=== PATIENT | female | born 1940 | race Caucasian/White ===

== ENCOUNTER 2016-06-21 10:14 | Outpatient (CLI) | payer MEDICARE | END 2016-06-21 10:15 | disposition home or self-care (01) | DX: Z12.31 Encounter for screening mammogram for malignant neoplasm of breast (principal); Z80.3 Family history of malignant neoplasm of breast ==

== ENCOUNTER 2017-05-12 15:00 | Outpatient (CLI) | payer MEDICARE ==
--- NOTE | 2017-05-13 11:01 | Ultrasound Report ---
EXAM: THYROID ULTRASOUND EXAM DATE: 05/12/2017 03:57 PM. CLINICAL HISTORY: NODULE, NONTOXIC MULTINODULAR GOITER. COMPARISON: None. TECHNIQUE: Real time sonographic imaging of the thyroid was performed by the resource analyst. Multiple re presentative static images were saved for review. FINDINGS: THYROID GLAND: Right Lobe: 4.4 x 2.4 x 2.3 cm, volume 13 cc. Normal background echotexture. Right Lobe Nodules: 0.5 x 0.3 x 0.7 cm upper pole cyst. Heterogeneous solid right lower thyroid nodule with vascularity measuring 2.2 x 1.6 x 1.7 cm. Left Lobe: 4.2 x 1.7 x 1.3 cm, volume 4.9 cc. Normal background echotexture. Left Lobe Nodules: Heterogeneous solid left mid thyroid nodule measures 0.9 x 0.7 x 0.7 cm. Isthmus: 0.2 cm AP. Isthmic Nodules: None. LYMPH NODES: No adenopathy demonstrated in the central or lateral compartment. OTHER: None. IMPRESSION: 1. A 2.2 cm solid heterogeneous right lower thyroid nodule. Recommend ultrasound guided FNA. 2. Small 0.9 cm heterogeneous left mid thyroid nodule. Management recommendations are based on 2015 [place] [employer] Management Guidelines for A dult Patients with Thyroid Nodules and Differentiated Thyroid Cancer. [facility] Referring Provider Line: [phone] SITE ID: [id number]
== END 2017-05-12 15:01 | disposition home or self-care (01) ==
LOC: DI 15:00
PROVIDERS: ATTEND Internal Medicine
DX: E04.2 Nontoxic multinodular goiter (principal)
CPT/HCPCS: 76536

== ENCOUNTER 2017-05-27 11:42 | Outpatient (CLI) | payer MEDICARE ==
[2017-05-27] MEDS ORDERED: BUFFERED LIDOCAINE 10 ML SYRINGE IU ONE (14:48)
--- NOTE | 2017-05-29 12:12 | Ultrasound Report ---
DATE OF SERVICE: 05/27/2017 ULTRASOUND-GUIDED FINE NEEDLE ASPIRATION RIGHT THYROID NODULE: 05/27/2017 CLINICAL INDICATION: A 2.2 cm nodule lower pole right lobe. PROCEDURE: Informed consent was obtained. Using standard aseptic technique, the patient's right nec k was prepped and draped in the usual sterile fashion. The skin and soft tissues were anesthetized with li docaine. Under ultrasound guidance, four 22-gauge fine needle aspirations were performed. Needle washings wer e submitted to Pathology. The patient tolerated the procedure well. No immediate complications. IMPRESSION: Successful ultrasound-guided fine needle aspiration of right thyroid nodule. Await path ology report. TD: 05/27/2017 20:36
== END 2017-05-27 11:43 | disposition home or self-care (01) ==
LOC: DI 11:42
PROVIDERS: ATTEND Internal Medicine
DX: E04.1 Nontoxic single thyroid nodule (principal)
CPT/HCPCS: 10022; 76942

== ENCOUNTER 2017-06-23 12:27 | Outpatient (CLI) | payer MEDICARE ==
--- NOTE | 2017-06-24 20:50 | Mammography Report ---
DATE OF SERVICE: 06/23/2017 DIGITAL SCREENING MAMMOGRAM: 06/23/2017 CLINICAL INDICATION: A 77-year-old with family history of breast cancer, history of benign biopsies for screening. COMPARISON: 06/2016, 06/2015, 06/2014, 01/2013, 01/2012, 10/2010 TECHNIQUE: Routine CC and MLO projections were obtained of the breasts. The breasts demonstrate heterogeneously dense fibroglandular parenchyma bilaterally. Post-biopsy changes are stable. Punctate, typically benign calcifications are present. No suspicious masses, clustered microcalcifications, or regions of architectural distortion are identified. IMPRESSION: Benign findings. RECOMMENDATIONS: Routine annual screening unless otherwise clinically indicated. BIRADS category 2 benign findings. STANDARD QUALIFYING STATEMENTS 1. This examination was reviewed with the aid of Computed-Aided Detection (CAD). 2. A negative or benign imaging report should not delay biopsy if clinically suspicious findings are present. Consider surgical consultation if warranted. More than 5% of cancers are not identified by imaging. 3. Dense breasts may obscure an underlying neoplasm. TD: 06/24/2017 21:48
== END 2017-06-23 12:28 | disposition home or self-care (01) ==
LOC: DI 12:27
PROVIDERS: ATTEND Internal Medicine
DX: Z12.31 Encounter for screening mammogram for malignant neoplasm of breast (principal); Z80.3 Family history of malignant neoplasm of breast
CPT/HCPCS: 77067

== ENCOUNTER 2018-07-21 17:22 | Outpatient (CLI) | payer MEDICARE | END 2018-07-21 17:23 | disposition critical access hospital (66) | LOC: EMS 17:22 | PROVIDERS: ATTEND Surgery | DX: M79.602 Pain in left arm (principal); W01.0XXA Fall on same level from slipping, tripping and stumbling without subsequent striking against object, initial encounter; Y93.02 Activity, running; Y92.008 Other place in unspecified non-institutional (private) residence as the place of occurrence of the external cause | CPT/HCPCS: A0425; A0429 ==

== ENCOUNTER 2018-07-21 17:40 | Emergency (ER) | payer MEDICARE ==
[2018-07-21] MEDS ORDERED: MORPHINE 2 MG/ML CARPUJECT IVP STA (18:08)
[2018-07-21] MEDS ORDERED: ONDANSETRON 4 MG/2 ML VIAL IVP STA ×2 (18:08→20:33)
--- NOTE | 2018-07-21 18:10 | ED Physician Documentation ---
PD HPI UPPER EXT INJURY - Stated complaint Stated Complaint: GLF - Chief complaint Chief Complaint: Ext Problem - History obtained from History obtained from: Patient, EMS - History of Present Illness Location: Other (She had a trip and fall on a carpet edge at home landing forward and on her left side. She has a laceration above her eyes and a scrape on the face. She is up-to-date on tetanus. The thing that hurts the worst is poorly localizable left arm pain. She has been ambulatory since the accident. She is not anticoagulated, there was no loss of consciousness.) Review of Systems Constitutional: reports: Reviewed and negative Cardiac: reports: Reviewed and negative Respiratory: reports: Reviewed and negative PD PAST MEDICAL HISTORY - Past Medical History Cardiovascular: Other Psych: Anxiety Musculoskeletal: Osteoarthritis - Past Surgical History Past Surgical History: No HEENT: Cataracts - Present Medications Home Medications: Ambulatory Orders Medication Instructions Recorded Confirmed Hydrocodone/Acetaminophen 1 - 2 each PO Q6H PRN #20 tablet 07/21/18 [Hydrocodon-Acetaminophen 5-325] Multivitamin [Multiple Vitamins] 07/21/18 Ondansetron Odt [Zofran] 4 mg TL Q6H PRN #10 tablet 07/21/18 - Allergies Allergies/Adverse Reactions: Allergies Allergy/AdvReac Type Severity Reaction Status Date / Time codeine AdvReac Nausea Verified 07/21/18 17:45 - Social History Does the pt smoke?: No Smoking Status: Never smoker Does the pt drink ETOH?: No Does the pt have substance abuse?: No PD ED PE NORMAL - Vitals Vital signs reviewed: Yes - General General: Alert and oriented X 3, No acute distress - HEENT HEENT: PERRL, EOMI, Other (There is some periorbital edema on the left with early bruising, there is a laceration above the left eyebrow that shallow and abrasion lateral to that. There is no facial bony tenderness.) - Neck Neck: Supple, no meningeal sign, No bony TTP - Cardiac Cardiac: RRR, No murmur - Respiratory Respiratory: No respiratory distress, Clear bilaterally - Abdomen Abdomen: Non tender - Back Back: No spinal TTP - Extremities Extremities: Other (She is very tender to the left arm specifically the upper humerus and unable to range at all. There is mild tenderness over the dorsal wrist and forearm but much less so than the humerus. She is able to range the wrist but not the arm. She has normal neurovascular status in the left hand there is a small bruise over the left knee, but she is been ambulatory and it is not tender.) - Neuro Neuro: Alert and oriented X 3, Normal speech - Psych Psych: Normal mood, Normal affect Results - Vitals Vitals: Vital Signs - 24 hr 07/21/18 07/21/18 07/21/18 17:43 17:45 18:55 Temperature 35.9 C L Heart Rate 65 85 Respiratory 16 16 Rate Blood Pressure 169/94 H 169/117 H 146/84 H O2 Saturation 99 99 07/21/18 07/21/18 07/21/18 19:24 20:36 20:47 Temperature 36.6 C Heart Rate 86 75 84 Respiratory 16 18 17 Rate Blood Pressure 155/89 H 100/57 L 106/69 O2 Saturation 97 95 97 07/21/18 07/21/18 07/21/18 21:36 21:47 21:58 Temperature 36.4 C L Heart Rate 86 90 86 Respiratory 18 20 14 Rate Blood Pressure 122/79 142/81 H 148/89 H O2 Saturation 99 96 88 L 07/21/18 07/21/18 07/22/18 22:51 23:06 00:14 Temperature 36.0 C L Heart Rate 85 89 91 Respiratory 15 22 24 Rate Blood Pressure 158/90 H 156/96 H 138/87 H O2 Saturation 100 100 99 07/22/18 00:47 Temperature 36.5 C Heart Rate 90 Respiratory 19 Rate Blood Pressure 150/90 H O2 Saturation 97 Oxygen O2 Source Room air - Rads (name of study) CAT scan of the head and C-spine Radiology: EMP read contemporaneously (Stable atrophy and degenerative changes without acute disease) X-rays of the left forearm and left humerus Radiology: EMP read contemporaneously (Complicated humeral neck fracture and distal radius fracture.) Procedures - Laceration (location) L forehead Length in cm: 1.5 Wound type: Linear, Superficial Wound Preparation: Irrigated copiously NS Skin layer closure: Dermabond Other: Tetanus UTD Complexity: Simple - Splint (location) LLarm Splint applied by: Tech Type of splint: Fiberglass, Short arm, Volar cock up Other: Patient tolerated well, No complications, Sling provided PD MEDICAL DECISION MAKING - ED course ED course: 78-year-old woman with ground-level fall hitting her head and hurting her arm. She has proximal humerus and wrist fracture on the left. There was a laceration and abrasion on the forehead, the laceration was closed with Dermabond and she was given wound care instructions. Referred to orthopedics as an outpatient in a splint and a sling. Departure - Departure Disposition: 01 Home, Self Care Clinical Impression: Head injury, Facial laceration, Facial abrasion, Humeral surgical neck fracture, Fracture of left distal radius Condition: Good Record reviewed to determine appropriate education?: Yes Instructions: Humerus Fx, ED Fx Colles Wrist No Redu Requ, ED Laceration Facial Skin Glue Follow-Up: [facility] [Provider Group] - Within 1 week Prescriptions: Hydrocodone/Acetaminophen [Hydrocodon-Acetaminophen 5-325] 1 - 2 each PO Q6H PRN #20 tablet PRN Reason: pain Ondansetron Odt [Zofran] 4 mg TL Q6H PRN #10 tablet PRN Reason: Nausea / Vomiting Comments: Keep the sling on and dry, do not remove it. Return for new or worsening symptoms. Call the orthopedics office tomorrow for an appointment. Keep the Laceration on the face dry in general, you can wash it with soap and water briefly. Do not pick at it. Apply Vaseline to the abrasion lower to that, but try to avoid it on the glue. Do not drink or drive while taking narcotic pain medication. Note that many narcotic pain relievers also contain Tylenol/acetaminophen. Please ensure that your total dose of acetaminophen from all sources does not exceed 3 g (3000 mg) per day. You may get constipated while on this medication. Take a stool softener such as Colace twice a day while you are on it. Also add an knjj-ris-laxluqz laxative such as senna or MiraLAX on any day that you do not have a bowel movement. If you received a narcotic pain medication or sedative while in the emergency department, do not drive for the next 24 hours. Your blood pressure was elevated today on check into the emergency department. This does not mean that you have hypertension, it is a common phenomenon to come to the emergency department and have elevated blood pressure. I recommend that you see your primary care physician within the week to have it rechecked when you are feeling better.
--- NOTE | 2018-07-21 19:21 | CT Report ---
Reason: fall, head/arm inj Procedure Date: 07/21/2018 Accession Number: [id number] / [id number] Procedure: CT - HEAD WO CPT Code: FULL RESULT: EXAM: CT HEAD EXAM DATE: 07/21/2018 06:49 PM. CLINICAL HISTORY: Fall. Head/arm inj. COMPARISON: HEAD W/O 11/09/2015 1:50 PM. TECHNIQUE: Multiaxial CT images were obtained from the foramen magnum to the vertex. Reformats: Sagittal and coronal. IV contrast: None. In accordance with CT protocol optimization, one or more of the following dose reduction techniques were utilized for this exam: automated exposure control, adjustment of mA and/or KV based on patient size, or use of iterative reconstructive technique. FINDINGS: Parenchyma: No intraparenchymal hemorrhage. No evidence of mass, midline shift, or CT findings of acute infarction. Waters-white differentiation is distinct. Stable chronic microangiopathic white matter changes are evident. Extraaxial Spaces: Normal for age. No subdural or epidural collections identified. Ventricles: The ventricles and cortical sulci are prominent, consistent with age-related tissue loss. Sinuses and orbits: Imaged paranasal sinuses, orbits, and mastoids show no significant abnormality. Bones: No evidence of fracture or calvarial defect. Other: Superficial left periorbital fat stranding noted. IMPRESSION: Stable age-related cortical atrophic changes without evidence of acute intracranial abnormality. [facility]
--- NOTE | 2018-07-21 19:23 | XRAY Report ---
Reason: fall, head/arm inj Procedure Date: 07/21/2018 Accession Number: [id number] / [id number] Procedure: XR - Humerus LT CPT Code: FULL RESULT: EXAM: LEFT HUMERUS RADIOGRAPHY EXAM DATE: 07/21/2018 07:17 PM. CLINICAL HISTORY: Fall. Head/arm inj. COMPARISON: None. TECHNIQUE: 2 views. FINDINGS: Bones: Transverse humeral neck fracture displaced by about 5 mm with mild comminution. Nondisplaced greater tuberosity fracture. Joints: No dislocation. Advanced glenohumeral degenerative changes. Unremarkable elbow joint. IMPRESSION: 1. Mildly displaced transverse humeral neck fracture with nondisplaced greater tuberosity fracture. 2. Advanced osteoarthritis of the glenohumeral joint. [facility]
--- NOTE | 2018-07-21 19:30 | XRAY Report ---
Reason: fall, head/arm inj Procedure Date: 07/21/2018 Accession Number: [id number] / [id number] Procedure: XR - Forearm LT CPT Code: FULL RESULT: EXAM: LEFT FOREARM RADIOGRAPHY EXAM DATE: 07/21/2018 07:17 PM. CLINICAL HISTORY: Fall. Head/arm inj. COMPARISON: None. TECHNIQUE: 2 views. FINDINGS: Bones: Radial metaphyseal fracture with dorsal impaction. No other fractures identified. Joints: Normal. No effusions or subluxations in the visualized wrist or elbow joints. Soft Tissues: Unremarkable. IMPRESSION: Nondisplaced dorsally impacted radial metaphyseal fracture. [facility]
--- NOTE | 2018-07-21 19:35 | CT Report ---
Reason: fall, head/arm inj Procedure Date: 07/21/2018 Accession Number: [id number] / [id number] Procedure: CT - CERVICAL SPINE WO CPT Code: FULL RESULT: EXAM: CT CERVICAL SPINE WITHOUT CONTRAST DATE: 07/21/2018 06:49 PM. HISTORY: Fall. Head/arm inj. COMPARISONS: HEAD W/O 11/09/2015 1:50 PM. TECHNIQUE: Thin-section axial images were acquired of the cervical spine without contrast. Post-processing: Coronal and sagittal reformats. Other: None. In accordance with CT protocol optimization, one or more of the following dose reduction techniques were utilized for this exam: automated exposure control, adjustment of mA and/or KV based on patient size, or use of iterative reconstructive technique. FINDINGS: Alignment: Mild dextroscoliosis. No spondylolisthesis Bones: No fracture or bone lesion. Interspace Levels/Facets: C1-C2: Unremarkable. C2-C3: Partial fusion, a developmental variant. C3-C4: Moderate disk space narrowing. C4-C5: Advanced disk space narrowing with spurring. C5-C6: Advanced disk space narrowing with spurring. Left foraminal narrowing. C6-C7: Moderate disk space narrowing with spurring. Left foraminal narrowing. C7-T1: Unremarkable. Musculature: Normal. No fatty atrophy. Other: 2.3 cm right thyroid nodule noted. The lung apices are clear. IMPRESSION: 1. No acute cervical spine abnormalities. 2. Multilevel degenerative disk disease, worst at C4-C5 and C5-C6. 3. Right thyroid nodule. Consider ultrasound evaluation. [facility]
[2018-07-21] MEDS ORDERED: HYDROmorphone 1 MG/ML CARPUJECT IVP STA (20:07)
[2018-07-21] MEDS ORDERED: HYDROcod/ACET 5/325 Prepack 4 PO STA (20:07)
[2018-07-21] MEDS ORDERED: ONDANSETRON 4 MG/2 ML VIAL ONE (20:38)
[2018-07-21] MEDS ORDERED: LIDOCAINE 1% 2 ML VIAL ONE (20:51)
[2018-07-22 00:48] VITALS: BP 150/90
== END 2018-07-22 00:50 | disposition home or self-care (01) ==
LOC: EDUNIT# → ED 17:40
DX: S42.212A Unspecified displaced fracture of surgical neck of left humerus, initial encounter for closed fracture (principal); S42.255A Nondisplaced fracture of greater tuberosity of left humerus, initial encounter for closed fracture; S52.592A Other fractures of lower end of left radius, initial encounter for closed fracture; S01.81XA Laceration without foreign body of other part of head, initial encounter; S80.02XA Contusion of left knee, initial encounter; S09.90XA Unspecified injury of head, initial encounter; W01.10XA Fall on same level from slipping, tripping and stumbling with subsequent striking against unspecified object, initial encounter; Y93.02 Activity, running; Y92.009 Unspecified place in unspecified non-institutional (private) residence as the place of occurrence of the external cause; R03.0 Elevated blood-pressure reading, without diagnosis of hypertension
CPT/HCPCS: 12011; 29125; 70450; 72125; 73060; 73090; 96374; 96375; 96376; 99283; 99285; J1170; 12001

== ENCOUNTER 2018-07-23 16:18 | Outpatient (CLI) | payer MEDICARE ==
--- NOTE | 2018-07-24 11:34 | XRAY Report ---
Reason: R MIDDLE FINGER DEFORMITY Procedure Date: 07/23/2018 Accession Number: [id number] / [id number] Procedure: XR - Finger(s) RT CPT Code: FULL RESULT: EXAM: RIGHT THIRD DIGIT RADIOGRAPHY EXAM DATE: 07/23/2018 04:36 PM. CLINICAL HISTORY: R MIDDLE FINGER DEFORMITY. COMPARISON: XR WRIST COMPLETE 3 VIEWS 08/07/2009 3:32 PM. TECHNIQUE: 3 views. FINDINGS: Bones: Likely chronic posttraumatic changes are seen along the distal aspect of the middle phalanx. Joints: Posttraumatic changes including a well-corticated rounded fragment dorsally to the distal interphalangeal joint. [place]-neck deformity of the proximal interphalangeal joint, ligamentous injury. Soft Tissues: Normal. No soft tissue swelling. IMPRESSION: Likely chronic posttraumatic findings. If there is acute pain in the area, orthopedic consultation could be considered. [facility]
== END 2018-07-23 16:19 | disposition home or self-care (01) ==
LOC: DI 16:18
PROVIDERS: ATTEND Internal Medicine
DX: M20.031 Swan-neck deformity of right finger(s) (principal)
CPT/HCPCS: 73140

== ENCOUNTER 2018-09-22 13:19 | Outpatient (CLI) | payer MEDICARE ==
--- NOTE | 2018-09-23 11:45 | DEXA Report ---
Reason: FRACTURE OF HUMERUS RADIUS,MULTIPLE THYROID NODU Procedure Date: 09/22/2018 Accession Number: [id number] / [id number] Procedure: DEX - Dexa Spine and/or Hip CPT Code: FULL RESULT: EXAM: Dexa Spine and/or Hip DATE: 09/22/2018 2:18 PM CLINICAL HISTORY: FRACTURE OF HUMERUS RADIUS,MULTIPLE THYROID NODU TECHNIQUE: Dual energy x-ray absorptiometry (DXA) was performed on a [employer] System. Regions measured are the AP Spine, femoral neck, and if needed forearm. COMPARISON: None. In accordance with the International Society for Clinical Densitometry (ISCD) guidelines, data from previous exams may be reanalyzed using current recommendations and techniques. This is done to allow a more accurate basis for comparison with the current study. FINDINGS: The data for the lumbar spine is as follows: BMD (g/cm/cm) T-SCORE Z-SCORE REGION L1 0.853 -2.3 -0.4 L2 0.888 -2.6 -0.7 L3 0.945 -2.1 -0.2 L4 0.990 -1.7 0.2 TOTAL 0.923 -2.1 -0.2 NOTE: All evaluable vertebrae are used for classification The data for the hip is as follows: BMD (g/cm/cm) T-SCORE Z-SCORE REGION Neck 0.713 -2.3 -0.2 TOTAL 0.740 -2.1 -0.1 NOTE: The femoral neck or total proximal femur, whichever is lowest, is used for classification. IMPRESSION: THE WHO CLASSIFICATION BASED ON THE INTERNATIONAL REFERENCE STANDARD IS OSTEOPENIA. THE FRACTURE RISK IS INCREASED. RECOMMENDATION: Patients with diagnosis of osteoporosis or osteopenia should have regular bone mineral density assessment. For those eligible for Medicare, routine testing is allowed once every 2 years. Testing frequency can be increased for patients who have rapidly progressing disease or for those who are receiving medical therapy to restore bone mass. COMMENT: World Health Organization (WHO) definitions for osteoporosis and osteopenia: NORMAL BMD: T-score at -1.0 or higher, fracture risk is low OSTEOPENIA BMD: T-score between -1.0 and -2.5, fracture risk is increased. OSTEOPOROSIS BMD: T-score at -2.5 or lower, fracture risk is high. National Osteoporosis Foundation recommends: 1. Obtain adequate dietary calcium (at least 1200 mg per day) and vitamin D (400-800 international units per day). 2. Participate, as appropriate, in regular weightbearing and muscle-strengthening exercise. 3. Avoid tobacco use and reduce alcohol and caffeine intake. 4. For more detailed information see the website at www.NOF.org.
== END 2018-09-22 13:20 | disposition home or self-care (01) ==
LOC: DI 13:19
PROVIDERS: ATTEND Internal Medicine
DX: Z13.820 Encounter for screening for osteoporosis (principal); M85.89 Other specified disorders of bone density and structure, multiple sites
CPT/HCPCS: 77080

== ENCOUNTER 2018-09-25 15:14 | Outpatient (CLI) | payer MEDICARE ==
--- NOTE | 2018-09-26 21:52 | Ultrasound Report ---
Reason: FRACTURE OF HUMERUS RADIUS,MULTIPLE THYROID NODU Procedure Date: 09/25/2018 Accession Number: [id number] / [id number] Procedure: US - Head or Neck Soft Tissue CPT Code: FULL RESULT: EXAM: THYROID ULTRASOUND EXAM DATE: 09/25/2018 03:45 PM. CLINICAL HISTORY: Follow-up for thyroid nodules. Per patient information, benign FNA performed on 05/27/2017. COMPARISON: HEAD OR NECK SOFT TISSUE 05/12/2017 3:07 PM. TECHNIQUE: Real time sonographic imaging of the thyroid was performed by the retail and restaurant. Multiple new accounts representative static images were saved for review. FINDINGS: THYROID GLAND: Right Lobe: 4.8 x 2.8 x 2.4 cm, volume 16.5 cc. Normal background echotexture. Right Lobe Nodules: 1. Mostly solid nodule in the lateral right upper pole measuring up to 6 mm. 2. Complex nodule in the central slightly medial right mid lobe measuring up to 4 mm. 3. A cyst is seen measuring up to 7 mm in the lateral mid lobe. 4. Heterogeneous solid nodule measuring up to 26 mm. Left Lobe: 4.3 x 1.7 x 1.2 cm, volume 4.3 cc. Normal background echotexture. Left Lobe Nodules: 1. Dominant complex nodule measuring up to 4 mm in the medial upper pole. 2. In the midportion by the Isthmus, complex nodule measuring up to 4 mm. 3. In the lateral midportion, a complex nodule measuring up to 3 mm. Isthmus: 0.1 cm AP. Isthmic Nodules: None. Mildly increased vascularity noted. LYMPH NODES: No adenopathy demonstrated in the central or lateral compartment. OTHER: None. IMPRESSION: Bilateral thyroid nodules described above, largest measuring up to 26 mm in the right lower pole. Management recommendations are based on 2015 [place] [employer] Management Guidelines for Adult Patients with Thyroid Nodules and Differentiated Thyroid Cancer. [facility]
== END 2018-09-25 15:15 | disposition home or self-care (01) ==
LOC: DI 15:14
PROVIDERS: ATTEND Internal Medicine
DX: E04.2 Nontoxic multinodular goiter (principal)
CPT/HCPCS: 76536

== ENCOUNTER 2018-10-14 13:32 | Outpatient (CLI) | payer MEDICARE ==
--- NOTE | 2018-10-14 16:56 | Mammography Report ---
Reason: SCREENING MAMMO Procedure Date: 10/14/2018 Accession Number: [id number] / [id number] Procedure: SUKH - Screening Mammo w/Roby CPT Code: FULL RESULT: EXAM: Screening Mammo w/Roby DATE: 10/14/2018 2:53 PM CLINICAL HISTORY: Routine screening. No reported personal history of breast cancer. Family history breast cancer in mother at age 80 and sister age 70. TECHNIQUE: (B) - Bilateral CC and MLO views were obtained. COMPARISON: 06/23/2017 through 06/09/2014. PARENCHYMAL PATTERN: (D) - The breasts demonstrate heterogeneously dense fibroglandular parenchyma bilaterally. FINDINGS: Bilateral breasts: Exam is technically limited due to patient mobility restrictions related to severe arthritis in both shoulders and fracture of the left humerus. Best possible imaging was obtained. There are no suspicious masses, calcifications, or areas of distortion. IMPRESSION: Negative examination. BI-RADS category 1. RECOMMENDATION: (ANNUAL) - Recommend routine annual screening mammography. BI-RADS CATEGORY: (1) - Negative. STANDARD QUALIFYING STATEMENTS: 1. This examination was not reviewed with the aid of Computer-Aided Detection (CAD). 2. A negative or benign imaging report should not preclude biopsy if clinically suspicious findings are present. 3. Dense breasts may obscure an underlying neoplasm. 4. This examination was reviewed with the aid of 3D breast imaging (tomosynthesis).
== END 2018-10-14 13:33 | disposition home or self-care (01) ==
LOC: DI 13:32
PROVIDERS: ATTEND Internal Medicine
DX: Z12.31 Encounter for screening mammogram for malignant neoplasm of breast (principal); Z80.3 Family history of malignant neoplasm of breast
CPT/HCPCS: 77063; 77067

== ENCOUNTER 2020-05-22 10:26 | Outpatient (CLI) | payer MEDICARE | END 2020-05-22 10:27 | disposition critical access hospital (66) | LOC: EMS 10:26 | PROVIDERS: ATTEND Surgery | DX: R42 Dizziness and giddiness (principal); R11.0 Nausea | CPT/HCPCS: A0425; A0427 ==

== ENCOUNTER 2020-05-22 10:44 | Emergency (ER) | payer MEDICARE ==
[2020-05-22 11:11] LABS: BASOPHILS % (AUTO) 0.5 %; EOSINOPHILS % (AUTO) 0.5 %; HGB - HEMOGLOBIN 13.5 g/dL (12.0-16.0); LYMPHOCYTES # (AUTO) 0.6 10^3/uL (1.5-3.5); LYMPHOCYTES % (AUTO) 9.3 %; MEAN CORPUSCULAR HEMOGLOBIN 31.4 pg (27.0-31.0); MEAN CORPUSCULAR HGB CONC 32.2 g/dL (32.0-36.0); MEAN CORPUSCULAR VOLUME 97.4 fL (81.0-99.0); MEAN PLATELET VOLUME 9.6 fL (7.9-10.8); MONOCYTES # (AUTO) 0.3 10^3/uL (0.0-1.0); MONOCYTES % (AUTO) 4.9 %; NEUTROPHILS # (AUTO) 5.2 10^3/uL (1.5-6.6); NEUTROPHILS % (AUTO) 84.6 %; PLT - PLATELET COUNT 155 10^3/uL (130-450); RED CELL DISTRIBUTION WIDTH 12.3 % (12.0-15.0); WHITE BLOOD COUNT 6.2 x10^3/uL (4.8-10.8)
[2020-05-22] MEDS ORDERED: DEXAMETHASONE 10 MG/ML VIAL IVP STA (11:14)
[2020-05-22] MEDS ORDERED: SODIUM CHLORIDE 0.9% 1,000 ML IV STA ×2 (11:14→13:50)
[2020-05-22] MEDS ORDERED: MECLIZINE 12.5 MG TABLET PO STA (11:15)
[2020-05-22] MEDS ORDERED: ONDANSETRON 4 MG/2 ML VIAL IVP STA ×2 (11:16→15:16)
--- NOTE | 2020-05-22 11:16 | ED Physician Documentation ---
History of Present Illness - Stated complaint Stated Complaint: DIZZY - Chief complaint Chief Complaint: Neuro - History obtained from History obtained from: Patient - History of Present Illness Timing: Today - Additonal information Additional information: 80-year-old female reports acute dizziness nausea and vomiting upon arriving arising this morning. She feels the room is spinning and if she moves her head at all she feels nauseated. She does have a bit of a headache. She has had vertigo previously never this bad. She has not been sick prior to this she denies any signs or symptoms of illness and today is unable to stand walk or move secondary to severe dizziness with any head movement. Review of Systems Constitutional: denies: Fever Eyes: denies: Decreased vision Ears: denies: Ear pain Nose: denies: Rhinorrhea / runny nose, Congestion Throat: denies: Sore throat Cardiac: denies: Chest pain / pressure, Palpitations Respiratory: denies: Dyspnea, Cough GI: reports: Nausea, Vomiting. denies: Abdominal Pain : denies: Dysuria, Frequency Skin: denies: Rash, Lesions, Abrasion (s) Musculoskeletal: denies: Neck pain, Back pain, Extremity pain Neurologic: reports: Headache, Other (Dizziness). denies: Generalized weakness, Focal weakness, Numbness, Head injury, LOC PD PAST MEDICAL HISTORY - Past Medical History Past Medical History: Yes Cardiovascular: Other Psych: Anxiety Musculoskeletal: Osteoarthritis - Past Surgical History Past Surgical History: No HEENT: Cataracts - Present Medications Home Medications: Ambulatory Orders Medication Instructions Recorded Confirmed Hydrocodone/Acetaminophen 1 - 2 each PO Q6H PRN #20 tablet 07/21/18 [Hydrocodon-Acetaminophen 5-325] Multivitamin [Multiple Vitamins] 07/21/18 Ondansetron Odt [Zofran] 4 mg TL Q6H PRN #10 tablet 07/21/18 Meclizine [Antivert] 25 mg PO Q6H PRN #20 tablet 05/22/20 Ondansetron Odt [Zofran] 4 mg TL Q6H PRN #10 tablet 05/22/20 - Allergies Allergies/Adverse Reactions: Allergies Allergy/AdvReac Type Severity Reaction Status Date / Time codeine AdvReac Nausea Verified 05/22/20 10:54 - Social History Does the pt smoke?: No Smoking Status: Never smoker Does the pt drink ETOH?: No Does the pt have substance abuse?: No - Immunizations Immunizations are current?: Yes PD ED PE NORMAL - Vitals Vital signs reviewed: Yes (Hypertensive) - General General: Alert and oriented X 3, Well developed/nourished, Other (The patient is laying curled in the position with her eyes closed not wanting to move.) - HEENT HEENT: Atraumatic, PERRL, EOMI, Ears normal, Other (There are 5 beats of rapid nystagmus bilaterally.) - Neck Neck: Supple, no meningeal sign, No bony TTP - Cardiac Cardiac: RRR, No murmur - Respiratory Respiratory: No respiratory distress, Clear bilaterally - Abdomen Abdomen: Soft, Non tender - Back Back: No CVA TTP, No spinal TTP - Derm Derm: Normal color, Warm and dry, No rash - Extremities Extremities: No deformity, No edema - Neuro Neuro: Alert and oriented X 3, sample wrapper 2-12 intact, No motor deficit, No sensory deficit, Normal speech Eye Opening: Spontaneous Motor: Obeys Commands Verbal: Oriented GCS Score: 15 - Psych Psych: Normal mood, Normal affect Results - Vitals Vitals: Vital Signs - 24 hr 05/22/20 05/22/20 05/22/20 10:50 13:00 15:00 Temperature 36.5 C 36.7 C Heart Rate 84 88 97 Respiratory 11 L 16 Rate Blood Pressure 155/93 H 166/89 H 148/80 H O2 Saturation 93 93 99 Oxygen O2 Source Room air - Labs Labs: Laboratory Tests 05/22/20 05/22/20 05/22/20 11:05 11:05 13:05 WBC 6.2 RBC 4.30 Hgb 13.5 Hct 41.9 MCV 97.4 MCH 31.4 H MCHC 32.2 RDW 12.3 Plt Count 155 MPV 9.6 Neut # (Auto) 5.2 Lymph # (Auto) 0.6 L [place] # (Auto) 0.3 Eos # (Auto) 0.0 Baso # (Auto) 0.0 Absolute Nucleated RBC 0.00 Nucleated RBC % 0.0 Sodium 139 Potassium 3.9 Chloride 103 Carbon Dioxide 24 Anion Gap 12.0 BUN 16 Creatinine 0.8 Estimated GFR (MDRD) 69 L Glucose 158 H Calcium 8.9 Total Bilirubin 0.7 AST 18 ALT 18 Alkaline Phosphatase 75 Total Protein 6.8 Albumin 3.9 Globulin 2.9 Albumin/Globulin Ratio 1.3 Lipase 20 L Urine Color YELLOW Urine Clarity CLEAR Urine pH 7.0 Ur Specific [place] 1.020 Urine Protein NEGATIVE Urine Glucose (UA) NEGATIVE Urine Ketones NEGATIVE Urine Occult Blood NEGATIVE Urine Nitrite NEGATIVE Urine Bilirubin NEGATIVE Urine Urobilinogen 0.2 (NORMAL) Ur Leukocyte Esterase NEGATIVE Ur Microscopic Review NOT INDICATED Urine Culture Comments NOT INDICATED - Rads (name of study) CT head Radiology: Prelim report reviewed, EMP read indepedently, See rad report PD MEDICAL DECISION MAKING - ED course Complexity details: reviewed old records, reviewed results, re-evaluated patient, considered differential, d/w patient ED course: 80-year-old female with acute vertigo has marked nystagmus on arrival and nausea and vomiting. An IV line is established she is given 10 mg of dexamethasone 25 mg of meclizine and a liter of saline. She has improvement in her dizziness and is able to open her eyes. A modified Giorgi maneuver is done on the patient twice with some improvement in her dizziness and she is able to use the bedpan. She has further improvement with time and feels the maneuver worked well to improve symptoms. Departure - Departure Disposition: 01 Home, Self Care Clinical Impression: Labyrinthitis Qualifiers: Laterality: bilateral Qualified Code(s): H83.03 - Labyrinthitis, bilateral Condition: Stable Instructions: ED Labyrinthitis Follow-Up: Gideon Kat MD [Primary Care Provider] - Prescriptions: Meclizine [Antivert] 25 mg PO Q6H PRN #20 tablet PRN Reason: Dizziness Ondansetron Odt [Zofran] 4 mg TL Q6H PRN #10 tablet PRN Reason: Nausea / Vomiting
[2020-05-22 11:29] LABS: ALBUMIN 3.9 g/dL (3.2-5.5); ALBUMIN/GLOBULIN RATIO 1.3 (1.0-2.2); BILIRUBIN,TOTAL 0.7 mg/dL (0.2-1.0); CALCIUM 8.9 mg/dL (8.5-10.3); CREATININE 0.8 mg/dL (0.4-1.0); TOTAL PROTEIN 6.8 g/dL (6.7-8.2)
[2020-05-22 13:45] LABS: BILIRUBIN,URINE NEGATIVE (NEGATIVE); GLUCOSE, URINE (UA) NEGATIVE (NEGATIVE); KETONES,URINE (UA) NEGATIVE (NEGATIVE); LEUKOCYTE ESTERASE, URINE NEGATIVE (NEGATIVE); NITRITE,URINE NEGATIVE (NEGATIVE); OCCULT BLOOD,URINE NEGATIVE (NEGATIVE); PROTEIN,URINE NEGATIVE (NEGATIVE); UROBILINOGEN,URINE 0.2 (NORMAL) E.U./dL (NORMAL)
[2020-05-22 13:46] LABS: CLARITY,URINE CLEAR (CLEAR)
--- NOTE | 2020-05-22 14:31 | CT Report ---
PROCEDURE: HEAD WO INDICATIONS: headache, vertigo TECHNIQUE: Noncontrast 4.5 mm thick angled axial sections acquired from the foramen magnum to the vertex. For r adiation dose reduction, the following was used: automated exposure control, adjustment of mA and/or kV according to patient size. COMPARISON: CT 07/22/2018 FINDINGS: Image quality: Excellent. The ventricular system and cortical sulci demonstrate atrophy, consistent for patient's stated age. There are areas of hypodensity in the periventricular and subcortical white matter. There is no acut e intra or extra-axial fluid collection. No acute hemorrhage, mass lesion or midline shift. Brainst em is unremarkable. Globes are symmetrical. Sinuses are aerated. Osseous structures are intact. IMPRESSION: 1. No acute intracranial process. 2. Moderate atrophy and chronic microvascular ischemic changes. Reviewed by: Anita Hickey MD on 05/22/2020 2:30 PM PST Approved by: Anita Hickey MD on 05/22/2020 2:30 PM PST Station ID: [id number]
[2020-05-22 17:39] VITALS: BP 161/94
== END 2020-05-22 17:42 | disposition home or self-care (01) ==
LOC: EDUNIT# → ED 10:44
DX: H83.03 Labyrinthitis, bilateral (principal); R11.2 Nausea with vomiting, unspecified
CPT/HCPCS: 36415; 70450; 80053; 81003; 83690; 85025; 96374; 96375; 96376; 99284; A9270; 81001; 87086

== ENCOUNTER 2020-10-02 09:20 | Outpatient (CLI) | payer MEDICARE ==
--- NOTE | 2020-10-03 10:22 | Ultrasound Report ---
PROCEDURE: Head or Neck Soft Tissue INDICATIONS: MULTINODULAR GOITER TECHNIQUE: Real time scanning was performed of the neck region of interest, with image documentation . COMPARISON: 09/25/2018 thyroid ultrasound. FINDINGS: No soft tissue neck abnormality seen bilaterally external to the thyroid. The thyroid itse lf measures 2.5 x 2.8 x 4.4 cm on the right and 1.2 x 1.5 x 4.1 cm on the left. Inferiorly at the right thyroid lobe a previously present nodule has not changed and measures 2.1 x 2 .1 x 2.5 cm. This is wider than tall, solid, generally isoechoic, lobulated, with no echogenic foci a nd yields a TI-RADS 4 categorization with recommendation for fine needle aspiration biopsy given the average size of greater than 1.5 cm. At the right superior thyroid lobe there is a nodule not previously identified measuring 1.2 x 1.2 x 1.0 cm that is wider than tall, predominantly solid, hyperechoic and hypoechoic, lobulated and with n o internal calcifications. This yields a TI-RADS 4 categorization. Given the average dimension of les s than 1.5 cm but larger than 1.0 cm follow-up in one, 2, 3 and 5 years is recommended. A total of 2 previously present stable sub-7 mm nodules are also identified, superiorly on the right and inferiorly on the left, which do not require biopsy and which will be followed in conjunction wit h sequential assessment of the newly identified nodule superiorly on the right. IMPRESSION: The largest thyroid nodule by current standardized recommendations should be biopsied by fine-needle aspiration if this has not yet been performed. There is a new inferior right thyroid nodule not previously present, which requires sequential follow -up by ultrasound in 1, 2, 3 and 5 years from now. There are 2 sub-7 mm thyroid nodules which can be followed during the sequence of assessment of the n ew thyroid nodule mentioned above. Reviewed by: Pedro Valle MD on 10/03/2020 10:20 AM PDT Approved by: Pedro Valle MD on 10/03/2020 10:20 AM PDT Station ID: [id number]
== END 2020-10-02 09:21 | disposition home or self-care (01) ==
LOC: DI 09:20
PROVIDERS: ATTEND Internal Medicine
DX: E04.2 Nontoxic multinodular goiter (principal)

== ENCOUNTER 2020-11-24 09:18 | Outpatient (CLI) | payer MEDICARE ==
--- NOTE | 2020-11-27 13:45 | Mammography Report ---
BILATERAL DIGITAL SCREENING MAMMOGRAM 3D/2D: 11/24/2020 CLINICAL: Routine screening. Comparison is made to exams dated: 10/14/2018 mammogram, 06/23/2017 mammogram, and 06/21/2016 mammogram - [facility]. The tissue of both breasts is heterogeneously dense. This may lower the sensitivity of mammography. There are benign vascular calcifications in both breasts. No significant masses, calcifications, or other findings are seen in either breast. There has been no significant interval change. IMPRESSION: BENIGN There is no mammographic evidence of malignancy. A 1 year screening mammogram is recommended. This exam was interpreted at Station ID: [id number]. NOTE: For mammograms, a report in lay terms will be sent to the patient. Approximately 15% of breast malignancies will not be visualized mammographically. In the management of a palpable breast mass, a negative mammogram must not discourage biopsy of a clinically suspicious lesion. Electronically Signed By: Joel Ruvalcaba M.D. ar/penrad:11/24/2020 10:38:26 ACR BI-RADS Category 2: Benign Finding(s) 3342F PARENCHYMAL PATTERN: (D) - The breast(s) demonstrate(s) heterogeneously dense fibroglandular sabi alaniz. BI-RADS CATEGORY: (2) - 2 RECOMMENDATION: (ANNUAL) - Recommend routine annual screening mammography. [id number] 1 year screening LATERALITY: (B)
== END 2020-11-24 09:19 | disposition home or self-care (01) ==
LOC: DI 09:18
PROVIDERS: ATTEND Internal Medicine
DX: Z12.31 Encounter for screening mammogram for malignant neoplasm of breast (principal)

== ENCOUNTER 2021-09-04 12:18 | Outpatient (CLI) | payer MEDICARE ==
--- NOTE | 2021-09-04 14:06 | Ultrasound Report ---
PROCEDURE: Head or Neck Soft Tissue INDICATIONS: THYROID NODULE TECHNIQUE: Real-time scanning was performed of the thyroid gland, with image documentation. COMPARISON: 10/02/2020, 09/25/2018 FINDINGS: Right: Thyroid lobe measures 5.1 x 2.7 x 2.8 cm, and is homogeneous in echotexture. Left: Thyroid lobe measures 4.7 x 1.7 x 1.2 cm, and is homogenous in echotexture. Isthmus: 2.4 mm thick. Nodule number: One Location: Inferior right Size: 2.5 x 2.1 x 2.0 cm. Composition: Solid Echogenicity: Isoechoic Shape: wider than tall. Margins: Lobulated Echogenic foci: Punctate Total points: 8 ACR TI-RADS category: 5 Nodule number: Two Location: Right superior/posterior Size: 2.0 x 1.0 x 1.2 cm. Composition: Predominantly solid Echogenicity: Hyperechoic and hypoechoic Shape: wider than tall. Margins: Lobulated Echogenic foci: None Total points: 5 ACR TI-RADS category: 4 Nodule number: Three Location: Right superior Size: 0.6 x 0.5 x 0.3 cm. Composition: Solid Echogenicity: Hypoechoic Shape: wider than tall. Margins: Lobulated Echogenic foci: Punctate Total points: 9 ACR TI-RADS category: 5 Nodule number: Four Location: Left posterior mid Size: 0.7 x 0.6 x 0.7 cm. Composition: Solid Echogenicity: Hypoechoic Shape: Wider than tall Margins: Smooth Echogenic foci: None Total points: 4 ACR TI-RADS category: 4 IMPRESSION: 1. 2.5 x 2.1 x 2.0 cm BI-RADS 5 nodule in the inferior right thyroid lobe. Stable in size compared to prior ultrasound. See below for FNA recommendations. 2. 2.0 x 1.0 x 1.2 cm BI-RADS 5 nodule in the right superior/posterior thyroid lobe. Stable in size c ompared to prior ultrasound. See below for FNA recommendations 3. Subcentimeter nodules in the right superior and left posterior/mid thyroid lobe. Stable in size co mpared to prior ultrasound ACR TI-RADS definitions and recommendations: TI-RADS 1 (benign): 0 points. FNA not needed. TI-RADS 2 (not suspicious): 2 points. FNA not needed. TI-RADS 3 (mildly suspicious): 3 points. "FNA if 2.5 cm or larger, follow up if 1.5 cm or larger (at 1, 3, and 5 years). TI-RADS 4 (moderately suspicious): 4-6 points. "FNA if 1.5 cm or larger, follow up if 1 cm or larger (at 1, 2, 3, and 5 years). TI-RADS 5 (highly suspicious): 7 points or more. "FNA if 1 cm or larger, follow up if 0.5 cm or larger (every year for 5 years). Reviewed by: Kirill Marshall on 09/04/2021 2:05 PM PDT Approved by: Kirill Marshall on 09/04/2021 2:05 PM PDT Station ID: [id number]
== END 2021-09-04 12:19 | disposition home or self-care (01) ==
LOC: DI 12:18
PROVIDERS: ATTEND Internal Medicine
DX: E04.2 Nontoxic multinodular goiter (principal)

== ENCOUNTER 2021-09-19 10:46 | Outpatient (CLI) | payer MEDICARE ==
--- NOTE | 2021-09-19 11:25 | DEXA Report ---
PROCEDURE: Dexa Spine and/or Hip INDICATIONS: POST MENOPAUSAL TECHNIQUE: Dual energy x-ray absorptiometry (DXA) was performed on a Fosubo System. Regions measur ed are the AP Spine, femoral neck, and if needed forearm. COMPARISON: September 22, 2018. FINDINGS: Lumbar Spine: Bone Mineral Density 0.886 g/cm/cm,T score -2.4, osteopenia; -4% change Left Hip: Bone Mineral Density 0.717 g/cm/cm,T score -2.3, osteopenia; -3.1% change Left Femoral Neck: Bone Mineral Density 0.672 g/cm/cm, T score -2.6, osteoporosis (T score greater or equal to -1.0: NORMAL) (T score from -1.1 to -2.4: OSTEOPENIA) (T score less than or equal to -2.5 to: OSTEOPOROSIS) Impression: Bone mineral density as detailed above. Patients with diagnosis of osteoporosis or osteopenia should have regular bone mineral density assess ment. For those eligible for Medicare, routine testing is allowed once every 2 years. Testing frequ ency can be increased for patients who have rapidly progressing disease or for those who are receivin g medical therapy to restore bone mass. Reviewed by: Donaldo Mayorga MD on 09/19/2021 11:23 AM PDT Approved by: Donaldo Mayorga MD on 09/19/2021 11:23 AM PDT Station ID: [id number]
== END 2021-09-19 10:47 | disposition home or self-care (01) ==
LOC: DI 10:46
PROVIDERS: ATTEND Internal Medicine
DX: M81.0 Age-related osteoporosis without current pathological fracture (principal); N95.8 Other specified menopausal and perimenopausal disorders

== ENCOUNTER 2022-09-02 09:19 | Outpatient (CLI) | payer MEDICARE ==
--- NOTE | 2022-09-02 10:59 | Ultrasound Report ---
PROCEDURE: Head or Neck Soft Tissue INDICATIONS: THYROID NODULE TECHNIQUE: Real-time scanning was performed of the thyroid gland, with image documentation. COMPARISON: 09/04/2021, thyroid FNA dated 05/27/2017 FINDINGS: Right: Thyroid lobe measures 5.7 x 2.7 x 2.5 cm, and is heterogeneous in echotexture. Left: Thyroid lobe measures 4.5 x 1.7 x 1.0 cm, and is heterogeneous in echotexture. Isthmus: 2 mm thick. Nodule number: 1 Location: Right middle pole Size: 1.7 x 1.7 x 2.0 cm, previously 2.5 x 2.1 x 2.0 cm previous measurement appears to have been a over measurement. Appearance is stable. This was previously sampled in 2017. Composition: Solid (2 points). Echogenicity: Isoechoic (1 point). Shape: wider than tall. Margins: Smooth (0 points). Echogenic foci: None (0 points). Total points: 4 ACR TI-RADS category: Moderately suspicious (4-6 points). Nodule number: 2 Location: Right lower pole Size: 1.2 x 1.1 x 1.4 cm, previously 2.0 x 1.0 x 1.2 cm. Composition: Spongiform (0 points). Echogenicity: Hypoechoic (2 points). Shape: wider than tall. Margins: Smooth (0 points). Echogenic foci: None (0 points). Total points: 02 ACR TI-RADS category: Not suspicious (2 points). Nodule number: 3 Location: Right upper pole Size: 0.4 0.4 x 0.5 cm, previously 0.6 x 0.5 x 0.5 cm. Composition: Mixed cystic and solid (1 point). Echogenicity: Hypoechoic (2 points). Shape: wider than tall. Margins: Smooth (0 points). Echogenic foci: Punctate echogenic foci (3 points). Total points: 6 ACR TI-RADS category: Moderately suspicious (4-6 points). Nodule number: 4 Location: Right upper pole Size: 0.7 x 0.5 x 0.5 cm, previously not identified . Composition: Spongiform (0 points). Echogenicity: Hypoechoic (2 points). Shape: wider than tall. Margins: Smooth (0 points). Echogenic foci: None (0 points). Total points: 2 ACR TI-RADS category: Not suspicious (2 points). Nodule number: 5 Location: Left upper pole Size: 0.4 x 0.3 x 0.3 cm, previously not identified. Composition: Mixed cystic and solid (1 point). Echogenicity: Hypoechoic (2 points). Shape: wider than tall. Margins: Smooth (0 points). Echogenic foci: Peripheral (rim) calcification (2 points). Total points: 6 ACR TI-RADS category: Moderately suspicious (4-6 points). Nodule number: 6 Location: Left lower pole Size: 0.5 x 0.5 x 0.5 cm, previously 0.7 x 0.6 x 0.7 cm. Composition: Spongiform (0 points). Echogenicity: Hypoechoic (2 points). Shape: wider than tall. Margins: Smooth (0 points). Echogenic foci: Punctate echogenic foci (3 points). Total points: 5 ACR TI-RADS category: Moderately suspicious (4-6 points). IMPRESSION: 1. Multinodular thyroid. 2. Nodule 1 has previously been sampled in 2017. This is stable in size compared to the study at the time of biopsy. It is of sufficient size for biopsy. However, it is stable in size, and has been prev iously sampled. Would recommend continued 12 month follow-up. ACR TI-RADS definitions and recommendations: TI-RADS 1 (benign): 0 points. FNA not needed. TI-RADS 2 (not suspicious): 2 points. FNA not needed. TI-RADS 3 (mildly suspicious): 3 points. "FNA if 2.5 cm or larger, follow up if 1.5 cm or larger (at 1, 3, and 5 years). TI-RADS 4 (moderately suspicious): 4-6 points. "FNA if 1.5 cm or larger, follow up if 1 cm or larger (at 1, 2, 3, and 5 years). TI-RADS 5 (highly suspicious): 7 points or more. "FNA if 1 cm or larger, follow up if 0.5 cm or larger (every year for 5 years). Reviewed by: Bryant Blanco MD on 09/02/2022 10:58 AM PDT Approved by: Bryant Blanco MD on 09/02/2022 10:58 AM PDT Station ID: [id number]
== END 2022-09-02 09:20 | disposition home or self-care (01) ==
LOC: DI 09:19
PROVIDERS: ATTEND Internal Medicine
DX: E04.2 Nontoxic multinodular goiter (principal)

== ENCOUNTER 2023-05-07 11:23 | Outpatient (CLI) | payer MEDICARE ==
--- NOTE | 2023-05-08 16:42 | Mammography Report ---
BILATERAL DIGITAL SCREENING MAMMOGRAM 3D/2D: 05/07/2023 CLINICAL: Routine screening. Comparison is made to exams dated: 11/24/2020 mammogram, 10/14/2018 mammogram, 06/23/2017 mammogram, mammogram, 06/20/2015 mammogram, and 06/09/2014 mammogram - [facility]. Both breasts are heterogeneously dense, which may obscure small masses (category c / 51-75% glandular tissue). There are benign vascular calcifications in both breasts. No significant masses, calcifications, or other findings are seen in either breast. There has been no significant interval change. IMPRESSION: BENIGN There is no mammographic evidence of malignancy. A 1 year screening mammogram is recommended. Based on the Tyrer Cuzick model (a risk assessment model) the patients lifetime risk is 1.1% and her 10 year risk is 0.0%. According to the ACR, ACS, and NCCN guidelines, an annual breast MRI exam christi g with mammogram is recommended if the patients lifetime risk is 20% or greater. This exam was interpreted at Station ID: [id number]. NOTE: For mammograms, a report in lay terms will be sent to the patient. Approximately 15% of breast malignancies will not be visualized mammographically. In the management of a palpable breast mass, a negative mammogram must not discourage biopsy of a clinically suspicious lesion. Electronically Signed By: Jorge contreras/mragy:05/07/2023 17:35:42 letter sent: No_Letter ACR BI-RADS Category 2: Benign Finding(s) 3342F PARENCHYMAL PATTERN: (D) - The breast(s) demonstrate(s) heterogeneously dense fibroglandular sabi alaniz. BI-RADS CATEGORY: (2) - 2 Mammogram [id number] 1 year screening LATERALITY: (B)
== END 2023-05-07 11:24 | disposition home or self-care (01) ==
LOC: DI 11:23
PROVIDERS: ATTEND Internal Medicine
DX: Z12.31 Encounter for screening mammogram for malignant neoplasm of breast (principal); R92.333 Mammographic heterogeneous density, bilateral breasts

== ENCOUNTER 2023-09-25 12:54 | Outpatient (CLI) | payer MEDICARE ==
--- NOTE | 2023-09-25 15:19 | Ultrasound Report ---
PROCEDURE: Soft Tissue Head or Neck INDICATIONS: THYROID NODULE TECHNIQUE: Real-time scanning was performed of the thyroid gland, with image documentation. COMPARISON: Ultrasound 09/02/2022, 09/04/2021 FINDINGS: Right: Thyroid lobe measures 4.6 x 2.2 x 2.3 cm, and is homogeneous in echotexture. Left: Thyroid lobe measures 4.2 x 1.5 x 1.0 cm, and is homogenous in echotexture. Isthmus: 0.13 cm thick. Nodule number: One Location: Right mid thyroid Size: 1.8 x 1.6 x 1 .9 cm. (Previously 1.7 x 1.7 x 1.9) Composition: Solid. Echogenicity: Isoechoic, hypoechoic. Shape: wider than tall (0 points). Margins: Smooth (0 points). Echogenic foci: None (0 points). Total points: 4 ACR TI-RADS category: 4 Nodule number: Two Location: Right mid thyroid Size: 0.7 x 0.7 x 0.8 cm (previous 21.9 x 1.0 x 1.2) . Composition: Spongiform. Echogenicity: Hypoechoic. Shape: wider than tall (0 points). Margins: Smooth (0 points). Echogenic foci: None (0 points). Total points: 2 ACR TI-RADS category: 2 IMPRESSION: 1.Thyroid nodules as noted above; 2. Right mid thyroid nodule #1 TiRADS 4, moderately suspicious. Recommendations as bellow. ACR TI-RADS definitions and recommendations: TI-RADS 1 (benign): 0 points. FNA not needed. TI-RADS 2 (not suspicious): 2 points. FNA not needed. TI-RADS 3 (mildly suspicious): 3 points. "FNA if 2.5 cm or larger, follow up if 1.5 cm or larger (at 1, 3, and 5 years). TI-RADS 4 (moderately suspicious): 4-6 points. "FNA if 1.5 cm or larger, follow up if 1 cm or larger (at 1, 2, 3, and 5 years). TI-RADS 5 (highly suspicious): 7 points or more. "FNA if 1 cm or larger, follow up if 0.5 cm or larger (every year for 5 years). Reviewed by: Francis Chavarria MD on 09/25/2023 3:18 PM PDT Approved by: Francis Chavarria MD on 09/25/2023 3:18 PM PDT Station ID: [id number]
== END 2023-09-25 12:55 | disposition home or self-care (01) ==
LOC: DI 12:54
PROVIDERS: ATTEND Internal Medicine
DX: E04.2 Nontoxic multinodular goiter (principal)

== ENCOUNTER 2023-10-24 09:30 | Outpatient (CLI) | payer MEDICARE ==
[2023-10-24] MEDS ORDERED: LIDOCAINE-MPF 1% 5 ML VIAL ONE (09:45)
[2023-10-24] MEDS: LIDOCAINE-MPF 1% 5 ML VIAL TD ONE (10:46)
--- NOTE | 2023-10-24 15:26 | Ultrasound Report ---
PROCEDURE: FNA Bx w/US Gdn 1st Les INDICATIONS: THYROID NODULE TECHNIQUE: The indications, alternatives, benefits, risks, and complications of the procedure were explained to the patient. Written informed consent was obtained and placed in the chart. The area of interest wa s examined sonographically and a site was chosen for ultrasound guided percutaneous sampling. The sk in was prepared and draped in the usual fashion, and anesthetized with 1% lidocaine infiltrated from the skin down to the lesion. Multiple passes were then performed, with contents emptied into an appr [facility] pathology specimen container. A bandage was applied to the area of access at completion of t he study. COMPARISON: Thyroid ultrasound 09/25/2023. FINDINGS: Location(s) of lesion(s) sampled: Right thyroid mid nodule (previously described as nodule #1 on 09/01) [place]: 25 gauge hypodermic needles. Number of passes: 6 Medications: 1% lidocaine for local anaesthesia. Complications: None. IMPRESSION: Successful ultrasound-guided right thyroid nodule fine needle aspiration, with cytology results pendi ng. Reviewed by: Claudia Stahl MD, PhD on 10/24/2023 3:25 PM PDT Approved by: Claudia Stahl MD, PhD on 10/24/2023 3:25 PM PDT Station ID: [id number]
== END 2023-10-24 09:31 | disposition home or self-care (01) ==
LOC: DI 09:30
PROVIDERS: ATTEND Internal Medicine
DX: E04.1 Nontoxic single thyroid nodule (principal)
CPT/HCPCS: 10005

== ENCOUNTER 2023-12-24 19:59 | Emergency (ER) | payer MEDICARE ==
[2023-12-24 20:25] VITALS: BP 152/97
[2023-12-24 20:27] LABS: BILIRUBIN,URINE NEGATIVE (NEGATIVE); CLARITY,URINE CLOUDY (CLEAR); GLUCOSE, URINE (UA) NEGATIVE (NEGATIVE); KETONES,URINE (UA) NEGATIVE (NEGATIVE); LEUKOCYTE ESTERASE, URINE MODERATE (NEGATIVE); NITRITE,URINE NEGATIVE (NEGATIVE); OCCULT BLOOD,URINE LARGE (NEGATIVE); PH,URINE 5.5 PH (5.0-7.5); PROTEIN,URINE 100 mg/dL (NEGATIVE); UROBILINOGEN,URINE 0.2 (NORMAL) E.U./dL (NORMAL)
--- NOTE | 2023-12-24 20:29 | ED Physician Documentation ---
PD HPI FEMALE - Stated complaint Stated Complaint: - Chief complaint Chief Complaint: UTI - History obtained from History obtained from: Patient - Additional information Additional information: This is an 83-year-old woman with no history of UTIs until about 6 months ago and now has her third in that timeframe. She has had burning dysuria and frequency with all over body tingling and may be slight hematuria starting today. No flank pain or fevers. PD PAST MEDICAL HISTORY - Past Medical History Past Medical History: Yes Cardiovascular: Other Psych: Anxiety Musculoskeletal: Osteoarthritis - Past Surgical History Past Surgical History: No HEENT: Cataracts - Present Medications Home Medications: Ambulatory Orders Medication Instructions Recorded Confirmed Ascorbic Acid [Vitamin C] 500 mg PO DAILY 12/24/23 12/24/23 Ascorbic Acid/Zinc/Elderberry 1 each PO DAILY 12/24/23 12/24/23 [Sambucus Elderberry Gummy] Atorvastatin [Lipitor] 10 mg PO DAILY 12/24/23 12/24/23 Calcium Carbonate [Calcium] 600 mg PO BID 12/24/23 12/24/23 Famotidine 10 mg PO DAILY 12/24/23 12/24/23 Hyaluronate Sodium [Hyaluronic 1 cap PO DAILY 12/24/23 12/24/23 Acid] Latanoprost 0.005% Ophth Drops 1 drops EACHEYE HS 12/24/23 12/24/23 [Xalatan Ophth Drops] Sulfamethox/Trimeth 800/160 1 each PO BID #10 tablet 12/24/23 [Bactrim Ds 800/160] Vitamin B Complex 1 each PO DAILY 12/24/23 12/24/23 - Allergies Allergies/Adverse Reactions: Allergies Allergy/AdvReac Type Severity Reaction Status Date / Time codeine AdvReac Nausea Verified 05/22/20 10:54 hydromorphone [From Dilaudid] AdvReac Nausea Verified 12/24/23 20:16 - Social History Does the pt smoke?: No Smoking Status: Never smoker Does the pt drink ETOH?: No Does the pt have substance abuse?: No - Immunizations Immunizations are current?: Yes - POLST Patient has POLST: No PD ED PE NORMAL - Vitals Vital signs reviewed: Yes - General General: Alert and oriented X 3, No acute distress - Abdomen Abdomen: Normal bowel sounds, Soft, Non tender - Back Back: No CVA TTP - Neuro Neuro: Alert and oriented X 3 Results - Vitals Vitals: Vital Signs - 24 hr 12/24/23 20:11 Temperature 36.8 C Heart Rate 100 Respiratory 18 Rate Blood Pressure 152/97 H Oxygen O2 Source Room air - Labs Labs: Laboratory Tests 12/24/23 20:22 Urine Color RED/BLOODY Urine Clarity CLOUDY Urine pH 5.5 Ur Specific [place] 1.015 Urine Protein 100 H Urine Glucose (UA) NEGATIVE Urine Ketones NEGATIVE Urine Occult Blood LARGE H Urine Nitrite NEGATIVE Urine Bilirubin NEGATIVE Urine Urobilinogen 0.2 (NORMAL) Ur Leukocyte Esterase MODERATE H Urine RBC TNTC H Urine WBC >25 H Ur Squamous Epith Cells RARE Squamous Urine Bacteria Rare Ur Microscopic Review INDICATED Urine Culture Comments INDICATED PD Medical Decision Making - ED course ED course: She says the last time she had a bladder infection she was treated initially with Keflex but had to be called a couple of days later to switch to Bactrim. As such we will start with Bactrim. UA is positive. Departure - Departure Disposition: Home, Self Care Clinical Impression: Cystitis Condition: Good Record reviewed to determine appropriate education?: Yes Instructions: ED UTI Cystitis Female Follow-Up: [facility] [Provider Group] Zaheer Pascual MD [Provider Admit Priv/Credential] - Prescriptions: Sulfamethox/Trimeth 800/160 [Bactrim Ds 800/160] 1 each PO BID #10 tablet Comments: Since this is your third UTI in about 6 months or so, it would be reasonable to follow-up with our women's clinic or urologist for evaluation for atrophic vaginitis which is a common cause of bladder infections in women of a certain age. We will culture your urine, the results should be done in 48-72 hours. If an antibiotic change is necessary we will call you. Return if worse in the meantime, especially if you develop increasing flank pain, fevers, or cannot keep down the medication. Forms: PCP List Discharge Date/Time: 12/24/23 20:44
[2023-12-24] MEDS: SULFAMETH/TRIMETH DS 800/160 MG TABLET PO STA (20:41)
[2023-12-24 20:44] LABS: BACTERIA,URINE Rare /HPF (None Seen); RBC,URINE TNTC /HPF (0-5); SQUAMOUS EPITHELIAL CELL,UR RARE Squamous (<= Few); WBC,URINE >25 /HPF (0-5)
== END 2023-12-24 20:44 | disposition home or self-care (01) ==
LOC: ED 19:59
DX: N30.90 Cystitis, unspecified without hematuria (principal); Z79.899 Other long term (current) drug therapy
CPT/HCPCS: 81001; 87086; 99283; A9270; 81003; 87077; 87181